=== PATIENT | female | born 1995 | race Asian ===

== ENCOUNTER 2020-12-16 10:45 | Outpatient (CLI) | payer OTHER, SELFPAY ==
[2020-12-16 12:10] LABS: Beta HCG Quantitative < 2.39 mIU/ML
== END 2020-12-16 10:46 | disposition home or self-care (01) ==
PROVIDERS: Visit Provider Student in an Organized Health Care Education/Training Program
DX: N92.6 Irregular menstruation, unspecified (principal)
CPT/HCPCS: 36415; 84702

== ENCOUNTER 2021-09-30 13:02 | Outpatient (CLI) | payer OTHER, SELFPAY ==
--- NOTE | ~2021-09-30 | US_ITS ---
EXAMINATION: US OB <= 14 weeks fetus DATE: 09/30/2021 14:27 INDICATION: Threatened . TECHNIQUE: Real-time transabdominal pelvic ultrasound was performed. COMPARISON: None. FINDINGS: The uterus measures 9.0 x 7.6 x 5.4 cm. There is an intrauterine gestational sac. A yolk sac is ident ified. The crown rump length measures 6 mm, which correlates with an estimated gestational age of 6 weeks and 3 day(s) (+/-) 4 day(s). heart motion is identified measuring 121 beats per min habematolel (bpm) by M-mode Doppler. The right ovary measures 4.1 x 2.7 x 2.6 cm. The left ovary measures 3.3 x 2.5 x 2.5 cm. There is no free fluid in the pelvis. IMPRESSION: 1. Single living intrauterine gestation with estimated date of delivery of 05/23/2022. Reviewed, dictated and finalized at location A. IMPRESSION: 1. Single living intrauterine gestation with estimated date of delivery of .
== END 2021-09-30 13:03 | disposition home or self-care (01) ==
LOC: ANHIMG 13:05
PROVIDERS: Visit Provider Student in an Organized Health Care Education/Training Program
DX: O20.0 Threatened abortion (principal)
CPT/HCPCS: 76801

== ENCOUNTER 2022-04-18 14:16 | Outpatient (CLI) | payer OTHER, SELFPAY ==
[2022-04-18 15:20] LABS: Basophils Percent Auto 0.2 % (0.2-1.2); Eosinophils Percent Auto 0.5 % (0-4.4); Hematocrit 40.3 % (37.0-47.0); Hemoglobin 13.3 g/dL (12.0-15.0); Immature Granulocyte Absolute 0.06 K/mm3 (0.00-0.031); Immature Granulocyte Percent A 0.7 % (0-0.5); Immature Platelet Fraction Pct 3.8 % (0.9-11.2); Lymphocytes Absolute Auto 1.84 K/mm3 (0.9-3.2); Lymphocytes Percent Auto 22.7 % (18.3-44.2); Mean Corpuscular Volume 97.1 fl (80-100); Mean Platelet Volume 9.6 fl (7.4-10.4); Monocytes Absolute Auto 0.6 K/mm3 (0.1-0.6); Monocytes Percent Auto 7.4 % (2.6-8.5); Neutrophils Absolute Auto 5.6 K/mm3 (1.3-6.7); Neutrophils Percent Auto 68.5 % (45.5-73.1); Platelet Count Result 174 k/mm3 (150-375); Red Blood Count 4.15 M/mm3 (4.2-5.4); Red Cell Distribution Width 13.8 % (11.5-14.5); White Blood Count 8.1 K/mm3 (4.5-10.0)
[2022-04-18 16:05] LABS: HIV 1/2 Ab P24 Ag Result Negative (Negative)
[2022-04-19 06:37] LABS: Rapid Plasma Reagin Non-Reactive (NonReactive)
== END 2022-04-18 14:17 | disposition home or self-care (01) ==
LOC: ANHLAB 14:17
PROVIDERS: Visit Provider Student in an Organized Health Care Education/Training Program
DX: Z34.83 Encounter for supervision of other normal pregnancy, third trimester (principal)
CPT/HCPCS: 36415; 85025; 85055; 86592; 86703; G0432

== ENCOUNTER 2022-05-04 06:01 | Inpatient (IN) | payer OTHER, SELFPAY ==
[2022-05-04] VITALS (67 sets, daily range): BP systolic 79–141; BP diastolic 48–123; PULSE 56–229; RESP 16; TEMP 36.4–36.7; O2SAT 87–100; BMI 21.5
--- NOTE | 2022-05-04 07:02 | LDADM ---
This patient, Amira Monroe, was admitted to Labor/Delivery/Recovery 107 on 05/04/22 at 06:01. Plans for labor, pain management and were discussed with patient. Patient/family oriented to hospital policies and general routines including ID bracelet, bed and alarms, visiting hours, pain management, procedures, bathroom and other care routines, personal items, smoking policy, room service/diet and guest tray routines, security routines, and visiting hours. Patient/Family are encouraged to report perceived risks to care and to ask questions if they do not understand what they are told or what they should do. See OBIX for further documentation.
[2022-05-04] MEDS: OXYTOCIN 30 UNITS/NS 500 ML 30 UNITS/500 ML BAG IV CONT (07:18)
[2022-05-04] MEDS: LACTATED RINGERS 1,000 ML 125 ML IV CONT ×2 (07:18→10:34)
[2022-05-04] MEDS: AMPICILLIN 2 GM/NS 100 ML 2 GM/100 ML BAG IVPB (07:18)
[2022-05-04 08:12] LABS: HIV 1/2 Ab P24 Ag Result Negative (Negative)
[2022-05-04 08:32] LABS: Basophils Percent Auto 0.4 % (0.2-1.2); Eosinophils Percent Auto 0.4 % (0-4.4); Hematocrit 38.9 % (37.0-47.0); Hemoglobin 12.9 g/dL (12.0-15.0); Immature Granulocyte Absolute 0.07 K/mm3 (0.00-0.031); Lymphocytes Absolute Auto 2.38 K/mm3 (0.9-3.2); Lymphocytes Percent Auto 33.5 % (18.3-44.2); Mean Corpuscular HGB Conc 33.2 g/dl (32-36); Mean Corpuscular Hemoglobin 31.5 pg (26-34); Mean Corpuscular Volume 95.1 fl (80-100); Mean Platelet Volume 10.3 fl (7.4-10.4); Monocytes Absolute Auto 0.7 K/mm3 (0.1-0.6); Monocytes Percent Auto 9.1 % (2.6-8.5); Neutrophils Percent Auto 55.6 % (45.5-73.1); Platelet Count Result 146 k/mm3 (150-375); Red Blood Count 4.09 M/mm3 (4.2-5.4); Red Cell Distribution Width 12.7 % (11.5-14.5); White Blood Count 7.1 K/mm3 (4.5-10.0)
--- NOTE | 2022-05-04 10:29 | WPDANESEPP ---
Anes - Eval Pre Procedure Procedure: Labor Epidural Date/Time: 05/04/22 10:29 Surgeon: Charanjit Preop Diagnosis: Labor pain Pre Op Diagnosis: IOL Patient Data Age: 26 Gender: F Height: 1.63 m Weight: 57 kg Last Vital Signs Temp 36.6 C 05/04/22 07:00 Pulse 87 05/04/22 10:15 BP 110/78 05/04/22 10:15 O2 Del Method Room Air 05/04/22 06:57 Allergies Allergy/AdvReac Type Severity Reaction Status Date / Time No Known Allergies Allergy Verified 05/02/22 13:48 Home Medications Medication Instructions Recorded Confirmed Type prenat.vits,padmini,[id number]-[id number]-[id number] 1 tablet PO DAILY 09/30/21 05/04/22 History ondansetron 4 mg disintegrating 4 mg PO Q6H PRN nausea and 10/14/21 10/14/21 Rx tablet vomiting #30 tabs cholecalciferol (vitamin D3) 125 125 mcg PO DAILY 04/18/22 04/18/22 History mcg (5,000 unit) tablet (Vitamin D3) Laboratory Tests 05/04/22 05/04/22 05/04/22 06:27 06:27 06:27 WBC 7.1 K/mm3 K/mm3 (4.5-10.0) RBC 4.09 M/mm3 L M/mm3 (4.2-5.4) Hgb 12.9 g/dL g/dL (12.0-15.0) Hct 38.9 % % (37.0-47.0) MCV 95.1 fl fl (80-100) MCH 31.5 pg pg (26-34) MCHC 33.2 g/dl g/dl (32-36) RDW 12.7 % % (11.5-14.5) Plt Count 146 k/mm3 L k/mm3 (150-375) MPV 10.3 fl fl (7.4-10.4) Immature Gran % (Auto) 1.0 % H % (0-0.5) Neut % (Auto) 55.6 % % (45.5-73.1) Lymph % (Auto) 33.5 % % (18.3-44.2) [place] % (Auto) 9.1 % H % (2.6-8.5) Eos % (Auto) 0.4 % % (0-4.4) Baso % (Auto) 0.4 % % (0.2-1.2) Lymph # (Auto) 2.38 K/mm3 K/mm3 (0.9-3.2) [place] # (Auto) 0.7 K/mm3 H K/mm3 (0.1-0.6) Eos # (Auto) 0.0 K/mm3 K/mm3 (0-0.3) Baso # (Auto) 0.0 K/mm3 K/mm3 (0.0-0.1) Abs Immat Gran (auto) 0.07 K/mm3 H K/mm3 (0.00-0.031) Absolute Neuts (auto) 4.0 K/mm3 K/mm3 (1.3-6.7) Absolute Nucleated RBC 0.0 K/mm3 K/mm3 (0.0-0.012) Nucleated RBC % 0.0 % % (0.0-0.2) % Immature Plt Fraction 5.0 % % (0.9-11.2) RPR Pending HIV 1&2 Ab/P24 Ag 4thGn Negative (Negative) Blood Type Antibody Screen 05/04/22 06:27 WBC RBC Hgb Hct MCV MCH MCHC RDW Plt Count MPV Immature Gran % (Auto) Neut % (Auto) Lymph % (Auto) [place] % (Auto) Eos % (Auto) Baso % (Auto) Lymph # (Auto) [place] # (Auto) Eos # (Auto) Baso # (Auto) Abs Immat Gran (auto) Absolute Neuts (auto) Absolute Nucleated RBC Nucleated RBC % % Immature Plt Fraction RPR HIV 1&2 Ab/P24 Ag 4thGn Blood Type O Positive Antibody Screen Negative : gestational age (KAT 05/23/22, ) Patient hx anesthesia problems: none Family hx anesthesia problems: none Results Review: All pre-operative results and documents have been reviewed as part of the pre-operative evaluation. [facility] Past Medical History Medical History History of miscarriage History of vaginal delivery Family History Family History Father Hypertension Social History Social History (Reviewed 05/02/22 @ 13:49 by JORJE Fernandez Smoking status: Never smoker Second hand tobacco smoke exposure: No Alcohol intake: never Substance use: never Lack of Transportation: No Lack of Food: Never True Current Housing: I Have Housing Concerned About Future Housing: No Difficulty Paying Gas/Electric Bills: No Difficulty Paying for Meds: No Currently Unemployed: No Education: Master's Degree or Higher Difficulty w/ Childcare or Family Care: No Spiritual care concerns: No
[2022-05-04] MEDS: AMPICILLIN 1 GM/NS 50 ML 1 GM/50 ML BAG IVPB ×2 (10:58→15:38)
--- NOTE | 2022-05-04 12:10 | PM.IMHP ---
H&P: HPI History of Present Illness Date/Time: 05/04/22 19:03 Chief Complaint: Induction of labor Narrative: Patient is a 26yo LMP 08/06/21 currently 37w2d gestation with KAT 05/23/22 who presented to L&D for a scheduled induction of labor secondary to intrauterine growth restriction. Patient is dated by ultrasound on 09/30/2021 at 6 weeks gestation. In general, patient reports feeling well today without complaints. Denies any vaginal bleeding or leakage of fluid. Reports occasional contractions and good movement. Review of Systems Review of Systems: All systems reviewed & are unremarkable except as noted in HPI and below Constitutional: Constitutional: Reports as per HPI and Reports no additional constitutional complaints Eyes: Eyes: Reports as per HPI and Reports no additional eye complaints ENT: Reports system reviewed and no additional complaints, except as documented and Reports as per HPI Cardiovascular: Cardiovascular: Reports as per HPI and Reports no additional cardiovascular complaints Respiratory: Respiratory: Reports as per HPI and Reports no additional respiratory complaints Gastrointestinal: Gastrointestinal: Reports as per HPI and Reports no additional gastrointestinal complaints Genitourinary: Genitourinary: Reports no additional female genitourinary complaints and Reports as per HPI Musculoskeletal: Musculoskeletal: Reports no additional musculoskeletal complaints and Reports as per HPI Integumentary/Breasts: Skin/Breast: Reports system reviewed and no additional complaints, except as docu and Reports as per HPI Neurologic: Reports system reviewed and no additional complaints, except as documented and Reports as per HPI Psychiatric: Psychiatric: Reports no additional psychiatric complaints and Reports as per HPI Endocrine: Endocrine: Reports no additional endocrine complaints and Reports as per HPI Hematologic/Lymphatic: Hematologic/Lymphatic: Reports no additional hematologic/lymphatic complaints and Reports as per HPI Allergic/Immunologic: Allergic/Immunologic: Reports no additional allergic/immunologic complaints and Reports as per HPI PMFSH Past Medical History Medical History History of miscarriage History of vaginal delivery Family History Family History Father Hypertension Social History Social History Smoking status: Never smoker Second hand tobacco smoke exposure: No Alcohol intake: never Substance use: never Lack of Transportation: No Lack of Food: Never True Current Housing: I Have Housing Concerned About Future Housing: No Difficulty Paying Gas/Electric Bills: No Difficulty Paying for Meds: No Currently Unemployed: No Education: Master's Degree or Higher Difficulty w/ Childcare or Family Care: No Spiritual care concerns: No Meds Home Medications and Allergies Home Medications Medication Instructions Recorded Confirmed Type prenat.vits,padmini,ina-aiob-aftar 1 tablet PO DAILY 09/30/21 05/04/22 History ondansetron 4 mg disintegrating 4 mg PO Q6H PRN nausea and 10/14/21 10/14/21 Rx tablet vomiting #30 tabs cholecalciferol (vitamin D3) 125 125 mcg PO DAILY 04/18/22 04/18/22 History mcg (5,000 unit) tablet (Vitamin D3) Allergies Allergy/AdvReac Type Severity Reaction Status Date / Time No Known Allergies Allergy Verified 05/02/22 13:48 Vital Signs Vital Signs - 24 hr 05/04/22 06:57 05/04/22 07:31 05/04/22 07:45 Temperature Pulse Rate 79 78 Blood Pressure 102/73 115/79 Pulse Oximetry Oxygen Delivery Room Air 05/04/22 08:00 05/04/22 08:15 05/04/22 08:30 Temperature Pulse Rate 76 69 76 Blood Pressure 107/77 108/76 109/73 Pulse Oximetry Oxygen Delivery 05/04/22 08:45 05/04/22 09:15 05/04/22 09:30 Temperature Pulse R
[2022-05-04] MEDS: miSOPROStol 200 MCG TABLET 800 MCG (16:15)
[2022-05-04 17:05] LABS: Rapid Plasma Reagin Non-Reactive (NonReactive)
--- NOTE | 2022-05-04 19:00 | PC.NURSE ---
Patient transferred to post room # 283 via ( W/C ). Support person present. Oriented to unit, room, information board, rooming in, admission packet and security measures. Patient verbalizes understanding.
--- NOTE | 2022-05-04 19:30 | P.PCNOB_ITS ---
OB - Delivery Note Procedure Delivery date: 05/04/22 Procedure: Patient is a 26-year-old now who presented to labor and delivery on the morning of 05/04/2022 for scheduled induction of labor secondary to intrauterine growth restriction. Patient was 4 cm dilated at time of presentation. Patient was admitted to labor and delivery where induction of labor was started with Pitocin. Patient was also started on antibiotic prophylaxis for unknown GBS status. Pitocin was slowly titrated throughout the morning and afternoon. Patient became increasingly uncomfortable and requested an epidural for pain management which was placed without difficulty. Artificial rupture membranes was performed at approximately 3:30 p.m. Clear amniotic fluid was noted. Patient made rapid cervical change from approximately 5-6 cm dilated to fully dilated at 3:49 p.m. Patient was encouraged to push and found to be pushing well. She was prepped and draped for delivery. At 4:00 p.m., patient delivered infant head atraumatically and without difficulty in FARHAD presentation. Occiput restituted t o maternal right side. With subsequent push, the infant's neck, shoulders, and rest of body delivered without difficulty. Infant was crying spontaneously. Infant's nose and mouth were suctioned with bulb suction. was placed on maternal abdomen where care was assumed by awaiting nursing staff. Delayed cord clamping was performed for approximately 60 seconds. Infant voided spontaneously. Cord was clamped and cut. A segment of cord was collected for cord gases. Cord blood was collected. The placenta was delivered spontaneously and intact. Uterus was noted to be boggy with a moderate amount of bleeding. Vigorous bimanual massage was performed and uterus became firm. Bleeding subsided. Cytotec 800 mcg was placed rectally for prophylaxis. On inspection, no lacerations were noted, however, there was a superficial left periurethral abrasion. Abrasion was not bleeding and did not require repair. Estimated blood loss for entire delivery was 250 cc. The was a live-born female , Apgars 8 and 9, weighing 5 lbs. 9 oz. Both mother and baby doing well at end of delivery. Events: Intrauterine Growth Restriction (IUGR) Induction method: Per Pitocin Protocol Delivery augmentation: Rupture of Membranes Delivery monitor: External FHT and External Uterine Route of delivery: Laceration Description: None Specimen: Yes (placenta and cord, cord blood, and cord gases) Quantitative Blood Loss (ml): 250 Anesthesia type: Epidural Disposition: Floor Complications: No immediate complications [place] Baby Date of : 05/04/22 Time of : 16:00 Weeks of gestation at delivery: 37 (37.2) gender: Female Weight (pounds): 5 Weight (ounces): 9 presentation: vertex position: Right Occiput Anterior Placenta delivery description: Spontaneous Cord Vessel Description: 3 Vessels and Delayed Cord Clamping (x60s) score one minute: 8 score five minutes: 9 AMG Delivery Billing Delivery Delivery: Delivery Charge
[2022-05-04] MEDS: IBUPROFEN 600 MG TABLET PO (21:11)
[2022-05-05] VITALS (7 sets, daily range): BP systolic 90–111; BP diastolic 53–73; PULSE 55–75; RESP 16–18; TEMP 36.3–37.5; O2SAT 98–100
[2022-05-05 05:46] LABS: Hematocrit 37.7 % (37.0-47.0); Hemoglobin 12.5 g/dL (12.0-15.0)
--- NOTE | 2022-05-05 08:40 | PM.OBPNVD ---
OB - PN: Subj Subjective Date/time seen: 05/05/22 08:40 Patient doing well this AM. Reports significant cramping that is reasonably controlled with medication. Minimal lochia. Ambulating without difficulty. Voiding well. OB - PN: Obj Data Labs 05/05/22 05:14 Labs: Laboratory Results - last 24 hr 05/04/22 05/05/22 06:27 05:14 Hgb 12.5 Hct 37.7 RPR Non-reactive OB - PN A/P Assessment and Plan (1) Normal spontaneous vaginal delivery: Code(s): O80 - Encounter for full-term uncomplicated delivery Status: Acute Assessment and Plan: PPD#1 doing well continue routine care likely dc home tomorrow Time Spent With Patient Time: Total time spent is greater than 50% in coordination of care (as documented) at patient's floor/unit and/or counseling patient: Review of Systems Review of Systems: All systems reviewed & are unremarkable except as noted in HPI and below Exam Const: General: cooperative, healthy appearing, comfortable and no acute distress GI: Inspection: non-distended GI Palp: Yes Soft to palpation and No Tenderness to palpation present (GI) Other: fundus firm below umbilicus Extrem: Right lower extremity: no edema Left lower extremity: no edema Other: no calf tenderness
--- NOTE | 2022-05-05 08:57 | WPDANLDPN2 ---
Anes-Prog Note L&D Date/Time: 05/05/22 08:57 Comfortable throughout: labor and delivery Neuraxial method: epidural Epidural/Spinal procedure site: clean & non-tender Neuro status: Neuro function grossly intact. Cardiovascular status: normal Respiratory status: normal Airway patency: baseline Mental status: baseline Post-Op hydration status: normal Vital Signs: Last Vital Signs Temp 98.9 F 05/05/22 08:05 Pulse 56 L 05/05/22 08:05 Resp 18 05/05/22 08:05 BP 96/53 L 05/05/22 08:05 Pulse Ox 100 05/05/22 08:05 O2 Del Method Room Air 05/04/22 19:10 Pain score (VAS): 0 Post-procedural complaints: none Patient feedback: Patient satisfied with anesthetic care.
[2022-05-05] MEDS: MULTIVIT/MIN/PREN/FOL AC/IRON TABLET 1 TAB PO (09:35)
[2022-05-05] MEDS: IBUPROFEN 600 MG TABLET PO (09:35)
[2022-05-05] MEDS: DOCUSATE SODIUM 100 MG CAPSULE PO (09:36)
--- NOTE | 2022-05-05 15:25 | PC.NURSE ---
[id number] Introductions were made, then consulted with patient to assess needs related to . Mother led the conversation with her?plans to feed?her infant and the?experience so far. Resources provided for inpatient and outpatient services mom/baby guide. Mother voiced understanding of information and requested assistance with questions. Discussion about milk production and the risks and benefits of supplementing with formula and how that might change her ultimate goals of . Mother opted to initiate pumping to improve milk production when infant receives a bottle. [id number] Breast pump provided due to building a milk supply in a mother who chooses to also supplement with formula. Instructions given on cleaning, care, usage, that there should be no pain, pumping schedule for milk production, collection, and storage of human milk. Parents are encouraged to record pumping schedule on the feeding sheet. Patient was assessed for correct placement, flange size, to pump for comfort and nipple stretching/stimulation for adequate milk production every 3 hours (8 times in 24 hours) 1-2 times at night if infant is not going to the breast. Mother voiced understanding of the education shared along with mom and baby guide for additional resource information. Reported to the primary RN.
[2022-05-05] MEDS: ACETAMINOPHEN 325 MG TABLET 650 MG PO (19:04)
[2022-05-06] MEDS: ACETAMINOPHEN 325 MG TABLET 650 MG PO (03:48)
[2022-05-06 07:50] VITALS: BP 113/72; PULSE 51; RESP 16; RESP 18; TEMP 36.3; O2SAT 99
[2022-05-06] MEDS: DOCUSATE SODIUM 100 MG CAPSULE PO (07:56)
[2022-05-06] MEDS: MULTIVIT/MIN/PREN/FOL AC/IRON TABLET 1 TAB PO (07:56)
[2022-05-06] MEDS: IBUPROFEN 600 MG TABLET PO (07:56)
--- NOTE | 2022-05-06 10:18 | PM.OBPNVD ---
OB - PN: Subj Subjective Date/time seen: 05/06/22 10:18 Patient doing well this morning. Reports cramping, mostly associated with breast-feeding. Pain reasonably controlled with medication. Minimal lochia. Ambulating without difficulty. Voiding well. Patient does report development of sore throat last night. Both and older child also with similar symptoms. OB - PN: Obj Data Labs 05/05/22 05:14 OB - PN A/P Assessment and Plan (1) Normal spontaneous vaginal delivery: Code(s): O80 - Encounter for full-term uncomplicated delivery Status: Acute Assessment and Plan: PPD#2 doing well continue routine care throat lozenge for sore throat dc home in stable condition emergency precautions reviewed f/u in office in 4-6 weeks Time Spent With Patient Time: Total time spent is greater than 50% in coordination of care (as documented) at patient's floor/unit and/or counseling patient: Review of Systems Review of Systems: All systems reviewed & are unremarkable except as noted in HPI and below Exam Const: General: cooperative, healthy appearing, comfortable and no acute distress GI: Inspection: non-distended GI Palp: Yes Soft to palpation and No Tenderness to palpation present (GI) Other: fundus firm below umbilcus Extrem: Right lower extremity: no edema Left lower extremity: no edema Other: no calf tenderness
--- NOTE | 2022-05-06 10:21 | PM.OBDSVD ---
DS: Admitting Diagnosis Discharge Date 05/06/22 Admitting Diagnosis IUP at 37w2d gestation Induction of labor Intrauterine growth restriction OB - DS: Summary OB Procedures : None OB Procedures Intrapartum: Spontaneous Vag Delivery and GBS prophylaxis OB Procedures: : None Time Spent with Patient Time attestation: Total time spent providing and/or coordinating discharge services: DS: Data Data Completed and Pending Pending studies at discharge: Pending at discharge 05/04/22 16:07 Surgical [PTH] Routine Discharge Plan Discharge Attending physician on discharge: Mariana Doonhue Discharging Clinician: Mariana Donohue Anticipated Discharge Date/Time: 05/06/22 10:22 Patient Disposition: Home, Self-Care Activity: as tolerated and pelvic rest Diet: regular Discharge Instructions: Call office ([phone]) to schedule a visit in 4-6 weeks. You may take Ibuprofen 600mg every 6 hours as needed for pain. Pain medication may make you constipated. It may be helpful to take an yazo-skx-uwphpep stool softener, such as Colace and/or Senokot, along with the pain medication to help lessen constipation. Call office or go to ED for pain not controlled with medication, headache, chest pain, shortness of breath, fever, chills, persistent nausea or vomiting, severe abdominal pain, heavy vaginal bleeding >2 pads/hour, foul vaginal discharge or odor, or problems with your breasts. Patient Instructions: Antibiotic Form Stand Alone Forms: General Discharge Information Follow-up/Referrals: Mariana Donohue MD [Physician] - Discharge Medications: Continued prenat.vits,padmini,[id number]-tmpc-liqch Tablet 1 tablet PO DAILY Discontinued ondansetron 4 mg tablet,disintegrating 4 mg PO Q6H PRN (Reason: nausea and vomiting) Qty: 30 0RF cholecalciferol (vitamin D3) [Vitamin D3] 125 mcg (5,000 unit) Tablet 125 mcg PO DAILY Date of admission: 05/04/22 06:01 Primary Care Provider: PHYSICIAN,[facility] DIRECTOR Admitting Provider: Mariana Donohue Attending physician on admission: Mariana Donohue Condition: Stable
[2022-05-06] MEDS: BENZOCAINE/MENTHOL (*BKC) 18 EA LOZENGE 1 LOZENGE PO (10:53)
[2022-05-08 09:55] VITALS: BP 110/76; PULSE 97; RESP 16; TEMP 36.6; O2SAT 99
== END 2022-05-06 12:50 | disposition home or self-care (01) | DRG 807 ==
LOC: ANHLDR 06:12 → ANHOB2 19:49
PROVIDERS: Admitting Provider Student in an Organized Health Care Education/Training Program; Visit Provider Student in an Organized Health Care Education/Training Program
DX: O36.5930 Maternal care for other known or suspected poor fetal growth, third trimester, not applicable or unspecified (principal); Z37.0 Single live birth; O71.82 Other specified trauma to perineum and vulva; Z3A.37 37 weeks gestation of pregnancy; R07.0 Pain in throat
CPT/HCPCS: 36415; 85014; 85018; 85025; 85055; 86592; 86703; 86850; 86900; 86901; 88307; A9270; G0432; J0290; J2590; J2795; J7120

== ENCOUNTER 2024-02-21 11:16 | Outpatient (CLI) | payer OTHER, SELFPAY ==
[2024-02-22 15:29] LABS: Insulin Level Total 25.6 uIU/mL
[2024-02-23 03:58] LABS: DHEA-Sulfate 113 mcg/dL (14-349); FSH 8.1 mIU/mL; LH 8.8 mIU/mL; Prolactin 13.3 ng/mL
[2024-02-25 16:48] LABS: Testosterone Total 26 ng/dL (2-45)
[2024-02-25 17:03] LABS: Testosterone Free 3.6 pg/mL (0.2-5.0)
== END 2024-02-21 11:17 | disposition home or self-care (01) ==
LOC: ANHLAB 11:18
PROVIDERS: Visit Provider Nurse Practitioner Obstetrics & Gynecology
DX: Z87.42 Personal history of other diseases of the female genital tract (principal)
CPT/HCPCS: 36415; 82627; 83001; 83002; 83498; 83525; 84146; 84402; 84403; 84443